=== PATIENT | female | born 2000 | race Caucasian/White ===

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

== ENCOUNTER 2018-04-05 08:20 | Emergency (ER) | payer MEDICAID ==
[~2018-04-05] VITALS: Ht 149.9 cm; Wt 64.5 kg
[2018-04-05 08:20] VITALS: BP 95/65; PULSE 98; TEMP 97.3
[~2018-04-05 08:20] MED LIST changes: +MACROBID 1100 MG/CAP PO
[2018-04-05] MEDS ORDERED: PREDNISONE20 MG PO (08:28)
[2018-04-05] MEDS ORDERED: BACTRIM DS 8001 TAB PO (08:28)
[2018-04-05] MEDS ORDERED: PHENYTEK200 MG PO (08:28)
== END 2018-04-05 10:33 | disposition home or self-care (01) ==
LOC: COL.ER 08:20
DX: L03.90 Cellulitis, unspecified (principal); S40.862A Insect bite (nonvenomous) of left upper arm, initial encounter; S40.861A Insect bite (nonvenomous) of right upper arm, initial encounter; S80.862A Insect bite (nonvenomous), left lower leg, initial encounter; S80.861A Insect bite (nonvenomous), right lower leg, initial encounter; Z87.891 Personal history of nicotine dependence; W57.XXXA Bitten or stung by nonvenomous insect and other nonvenomous arthropods, initial encounter
CPT/HCPCS: J1885

== ENCOUNTER 2018-04-14 19:32 | Emergency (ER) | payer MEDICAID ==
[~2018-04-14] VITALS: Ht 149.9 cm; Wt 58.2 kg
[~2018-04-14 19:32] MED LIST changes: +BACTRIM DS 8001 TAB PO; +PHENYTEK200 MG PO; +PREDNISONE20 MG PO
[2018-04-14 19:35] VITALS: BP 128/91; TEMP 97.8
[2018-04-14] MEDS ORDERED: DILANTIN 100MG100 MG (19:39)
[2018-04-14 19:57] LABS: BASO # 0.1 (0.0-0.2); BASO % 0.7 % (0.0-2.0); BILIRUBIN,TOTAL 0.7 mg/dL (0.0-1.0); CALCIUM 9.5 mg/dL (8.4-10.2); CREATININE, serum 0.62 mg/dL (0.52-1.25); EOS # 0.2 (0.0-0.7); EOS % 1.3 % (0-4.0); GRAN # 9.2 (1.4-6.5); GRAN % 69.5 % (42.2-75.2); HEMATOCRIT 40.2 % (35.0-45.0); HEMOGLOBIN 14.4 g/dl (12.0-15.0); LYMPH # 2.5 (1.2-3.4); LYMPH % 18.5 % (20.0-51.0); MEAN CELL VOLUME 94 fl (80.0-95.0); MEAN CORPUSCULAR HEMOGLOBIN 34 pg (26.0-32.0); MEAN CORPUSCULAR HGB CONC 36 g/dl (33.0-37.0); MEAN PLATELET VOLUME 10.6 fl (7.4-10.4); MONO # 1.3 (0.1-0.6); MONO % 9.8 % (1.7-9.3); PLATELET COUNT 216 K/mm3 (130-400); RED BLOOD COUNT 4.27 M/mm3 (4.10-5.30); REDCELL DISTRIBUTION WIDTH-CV 12.7 % (11.5-14.5); TOTAL PROTEIN 7.5 gm/dL (6.4-8.2)
[2018-04-14] MEDS ORDERED: MOBIC 7.5MG7.5 MG PO (20:24)
[2018-04-14 21:13] VITALS: PULSE 93
== END 2018-04-14 21:13 | disposition home or self-care (01) ==
LOC: COL.ER 19:32
PROVIDERS: Emergency Medicine
DX: F44.4 Conversion disorder with motor symptom or deficit (principal); R10.32 Left lower quadrant pain; F32.9 Major depressive disorder, single episode, unspecified; F41.9 Anxiety disorder, unspecified; F43.10 Post-traumatic stress disorder, unspecified; F90.9 Attention-deficit hyperactivity disorder, unspecified type; F17.210 Nicotine dependence, cigarettes, uncomplicated
CPT/HCPCS: J1885; J2405; J7030

== ENCOUNTER 2018-04-19 13:46 | Emergency (ER) | payer MEDICAID ==
[~2018-04-19] VITALS: Ht 149.9 cm; Wt 56.3 kg
[~2018-04-19 13:46] MED LIST changes: +DILANTIN 100MG100 MG; +MOBIC 7.5MG7.5 MG PO
[2018-04-19 13:47] VITALS: BP 107/70; TEMP 98.1
[2018-04-19] MEDS ORDERED: ELIMITE TOP (14:13)
[2018-04-19 14:29] VITALS: PULSE 93
== END 2018-04-19 14:30 | disposition home or self-care (01) ==
LOC: COL.ER 13:46
DX: B86 Scabies (principal); F17.210 Nicotine dependence, cigarettes, uncomplicated; F41.9 Anxiety disorder, unspecified; F32.9 Major depressive disorder, single episode, unspecified; F20.9 Schizophrenia, unspecified
CPT/HCPCS: J8540

== ENCOUNTER 2018-06-18 20:13 | Emergency (ER) | payer MEDICAID ==
[~2018-06-18] VITALS: Ht 149.9 cm; Wt 46.4 kg
[~2018-06-18 20:13] MED LIST changes: +ELIMITE TOP
[2018-06-18 20:51] VITALS: TEMP 97.8
[2018-06-18] MEDS ORDERED: OMNICEF 300MG300 MG PO (21:13)
[2018-06-18 21:40] VITALS: BP 127/84; PULSE 73
== END 2018-06-18 21:40 | disposition home or self-care (01) ==
LOC: COL.ER 20:13
DX: H66.91 Otitis media, unspecified, right ear (principal); F20.9 Schizophrenia, unspecified; F31.9 Bipolar disorder, unspecified; F41.9 Anxiety disorder, unspecified; F17.210 Nicotine dependence, cigarettes, uncomplicated; Z88.0 Allergy status to penicillin
CPT/HCPCS: J2405

== ENCOUNTER 2018-08-22 09:18 | Emergency (ER) | payer MEDICAID ==
[~2018-08-22] VITALS: Ht 149.9 cm; Wt 46.8 kg
[~2018-08-22 09:18] MED LIST changes: +OMNICEF 300MG300 MG PO
[2018-08-22 09:26] VITALS: BP 133/86
[2018-08-22] MEDS ORDERED: CIPRODEX OT (09:49)
[2018-08-22 09:58] VITALS: PULSE 100; TEMP 96.9
== END 2018-08-22 09:58 | disposition home or self-care (01) ==
LOC: COL.ER 09:18
DX: H60.91 Unspecified otitis externa, right ear (principal); J06.9 Acute upper respiratory infection, unspecified; F31.9 Bipolar disorder, unspecified; F43.10 Post-traumatic stress disorder, unspecified; F41.9 Anxiety disorder, unspecified; E11.9 Type 2 diabetes mellitus without complications; F20.9 Schizophrenia, unspecified; F17.210 Nicotine dependence, cigarettes, uncomplicated

== ENCOUNTER 2018-08-24 15:06 | Emergency (ER) | payer MEDICAID ==
[~2018-08-24] VITALS: Ht 149.9 cm; Wt 50.0 kg
[2018-08-24 15:06] VITALS: TEMP 97.8
[~2018-08-24 15:06] MED LIST changes: +CIPRODEX OT
[2018-08-24] MEDS ORDERED: OMNICEF 300MG300 MG PO (16:50)
[2018-08-24] MEDS ORDERED: FAMVIR 500500 MG/TAB PO (16:50)
[2018-08-24] MEDS ORDERED: PREDNISONE20 MG PO (16:50)
[2018-08-24 17:00] VITALS: BP 118/86
[2018-08-24 18:13] VITALS: PULSE 88
== END 2018-08-24 18:14 | disposition home or self-care (01) ==
LOC: COL.ER 15:06
DX: G51.0 Bell's palsy (principal); H60.91 Unspecified otitis externa, right ear; F17.210 Nicotine dependence, cigarettes, uncomplicated
CPT/HCPCS: J7512

== ENCOUNTER 2019-08-01 07:56 | Emergency (ER) | payer MEDICAID ==
[~2019-08-01] VITALS: Ht 149.9 cm; Wt 47.7 kg
[~2019-08-01 07:56] MED LIST changes: +FAMVIR 500500 MG/TAB PO
[2019-08-01 08:09] VITALS: TEMP 98.7
[2019-08-01] MEDS ORDERED: FLEXERIL 1010 MG/TAB PO (08:31)
[2019-08-01] MEDS ORDERED: CLEOCIN HCL300 MG PO (08:31)
[2019-08-01 08:50] VITALS: BP 119/78; PULSE 89
== END 2019-08-01 08:45 | disposition home or self-care (01) ==
LOC: COL.ER 07:56
DX: K08.89 Other specified disorders of teeth and supporting structures (principal); F41.9 Anxiety disorder, unspecified; F17.210 Nicotine dependence, cigarettes, uncomplicated; F43.10 Post-traumatic stress disorder, unspecified; F31.9 Bipolar disorder, unspecified; F20.9 Schizophrenia, unspecified; Z88.1 Allergy status to other antibiotic agents

== ENCOUNTER 2019-12-30 17:43 | Emergency (ER) | payer SELFPAY ==
[~2019-12-30] VITALS: Ht 162.6 cm; Wt 56.8 kg
[~2019-12-30 17:43] MED LIST changes: +CLEOCIN HCL300 MG PO
[2019-12-30 17:49] VITALS: TEMP 97.8
[2019-12-30 18:25] LABS: BILIRUBIN,TOTAL 0.2 mg/dL (0.0-1.0); C-REACTIVE PROTEIN 0.8 mg/dL (0.0-0.9); CALCIUM 8.9 mg/dL (8.4-10.2); CREATININE, serum 0.56 (0.52-1.25); TOTAL PROTEIN 7.1 gm/dL (6.4-8.2)
[2019-12-30 18:27] LABS: BASO # 0.1 (0.0-0.2); BASO % 0.5 % (0.0-2.0); EOS # 0.2 (0.0-0.7); EOS % 1.4 % (0-4.0); GRAN % 63.8 % (42.2-75.2); HEMATOCRIT 43.2 % (37.0-47.0); HEMOGLOBIN 14.2 g/dl (12.5-16.0); LYMPH # 3.4 (1.2-3.4); LYMPH % 26.9 % (20.0-51.0); MEAN CELL VOLUME 96 fl (80.0-100.0); MEAN CORPUSCULAR HEMOGLOBIN 32 pg (27.0-31.0); MEAN CORPUSCULAR HGB CONC 33 g/dl (33.0-37.0); MEAN PLATELET VOLUME 10.3 fl (7.4-10.4); MONO # 0.9 (0.1-0.6); MONO % 7.1 % (1.7-9.3); PLATELET COUNT 262 K/mm3 (130-400); RED BLOOD COUNT 4.48 M/mm3 (4.10-5.30)
[2019-12-30 19:18] LABS: ACETAMINOPHEN < 10 ug/mL (10-30); SALICYLATE < 1.0 mg/dL
[2019-12-30] MEDS ORDERED: OMNICEF 300MG300 MG PO (20:10)
[2019-12-30] MEDS ORDERED: NORCO 325 MG-51 TAB PO (20:10)
[2019-12-30 20:40] VITALS: BP 116/61; PULSE 109
[2019-12-30 21:01] LABS: COLLECTION METHOD CLEAN CATCH
[2019-12-30 21:10] LABS: MUCOUS Present /lpf; PH 6 (5-8); URINE APPEARANCE Clear; URINE BACTERIA Rare /hpf; URINE BILIRUBIN Negative (NEGATIVE); URINE BLOOD 1+ (NEGATIVE); URINE COLOR Yellow; URINE GLUCOSE Negative (NEGATIVE); URINE KETONE Negative (NEGATIVE); URINE LEUKOCYTE ESTERASE Negative (NEGATIVE); URINE NITRATE Positive (NEGATIVE); URINE PROTEIN(semi-quant) Negative (NEGATIVE); URINE RBC 0-2 /hpf; URINE UROBILINOGEN Negative (NEGATIVE)
[2019-12-30 21:41] LABS: TRICYCLIC ANTIDEPRESS URINE NEGATIVE
== END 2019-12-30 20:55 | disposition home or self-care (01) ==
LOC: COL.ER 17:43
PROVIDERS: Emergency Medicine
DX: J32.9 Chronic sinusitis, unspecified (principal); H66.91 Otitis media, unspecified, right ear; H60.92 Unspecified otitis externa, left ear; F10.129 Alcohol abuse with intoxication, unspecified; F17.210 Nicotine dependence, cigarettes, uncomplicated; Y90.5 Blood alcohol level of 100-119 mg/100 ml
CPT/HCPCS: J1885; J2405; J3010; J7030

== ENCOUNTER 2021-06-19 15:54 | Emergency (ER) | payer SELFPAY ==
[~2021-06-19 15:54] MED LIST changes: +NORCO 325 MG-51 TAB PO
== END 2021-06-19 16:51 | disposition left against medical advice (07) ==
LOC: COL.ER 15:54
DX: F10.939 Alcohol use, unspecified with withdrawal, unspecified (principal)

== ENCOUNTER 2021-07-15 17:04 | Emergency (ER) | payer SELFPAY ==
[~2021-07-15] VITALS: Ht 149.9 cm; Wt 54.5 kg
[2021-07-15 17:30] VITALS: TEMP 99
[2021-07-15] MEDS ORDERED: CLEOCIN HCL300 MG PO ×2 (18:59)
[2021-07-15] MEDS ORDERED: NORCO 325 MG-51 TAB PO (18:59)
[2021-07-15] MEDS ORDERED: FLAGYL500 MG PO (19:50)
[2021-07-15] MEDS ORDERED: CEPHALEXIN500 M1 PO (19:50)
[2021-07-15 20:27] VITALS: BP 148/86; PULSE 94
== END 2021-07-15 20:27 | disposition home or self-care (01) ==
LOC: COL.ER 17:04
DX: K11.20 Sialoadenitis, unspecified (principal); F17.290 Nicotine dependence, other tobacco product, uncomplicated

== ENCOUNTER 2022-01-01 16:32 | Emergency (ER) | payer SELFPAY ==
[~2022-01-01] VITALS: Ht 157.5 cm; Wt 59.1 kg
[~2022-01-01 16:32] MED LIST changes: +CEPHALEXIN500 M1 PO; +FLAGYL500 MG PO
[2022-01-01 18:26] LABS: BASO # 0.1 K/mm3 (0.0-0.2); BASO % 0.7 % (0.0-2.0); EOS # 0.2 K/mm3 (0.0-0.7); EOS % 2.5 % (0.0-4.0); GRAN # 4.2 K/mm3 (1.4-6.5); GRAN % 50.1 % (42.2-75.2); HEMATOCRIT 39.2 % (37.0-47.0); HEMOGLOBIN 13.3 g/dl (12.5-16.0); LYMPH # 3.1 K/mm3 (1.2-3.4); LYMPH % 37.5 % (20.0-51.0); MEAN CELL VOLUME 96 fl (80.0-100.0); MEAN CORPUSCULAR HEMOGLOBIN 32 pg (27-31); MEAN CORPUSCULAR HGB CONC 34 g/dl (33.0-37.0); MEAN PLATELET VOLUME 10.3 fl (7.4-10.4); MONO # 0.8 K/mm3 (0.1-0.6); PLATELET COUNT 257 K/mm3 (130-400); REDCELL DISTRIBUTION WIDTH-CV 13.2 % (11.5-14.5)
[2022-01-01 18:41] LABS: ALANINE AMINOTRANSFERASE 74 U/L (0-55); ALBUMIN 3.4 gm/dL (3.5-5.0); ALCOHOL(ethanol),MEDICAL 89 mg/dL (0-10); ALKALINE PHOSPHATASE 87 U/L (40-150); ANION GAP 10 mmol/L (7-16); AST,SGOT 46 U/L (5-34); BILIRUBIN,TOTAL 0.2 mg/dL (0.2-1.2); BLOOD UREA NITROGEN 14 mg/dL (7-19); CALCIUM 8.9 mg/dL (8.4-10.2); CARBON DIOXIDE 20 mmol/L (22-29); CHLORIDE 110 mmol/L (98-107); CREATININE, serum 0.73 mg/dL (0.57-1.11); GLUCOSE 96 mg/dL (70-99); POTASSIUM 3.9 mmol/L (3.5-4.5); SODIUM 140 mmol/L (136-145); TOTAL PROTEIN 6.6 gm/dL (6.2-8.1)
[2022-01-01 18:43] LABS: ACETAMINOPHEN < 1.0 ug/mL (10-30); SALICYLATE < 5.0 mg/dL (15.0-30.0)
[2022-01-01 19:01] LABS: TSH w REFLEX 2.392 uIU/mL (0.350-4.940)
[2022-01-02 00:40] VITALS: TEMP 97.9
[2022-01-02 13:12] LABS: COLLECTION METHOD CLEAN CATCH
[2022-01-02 13:30] LABS: MUCOUS Present (NOT PRESENT); PH 7 (5-8); SQUAMOUS EPITHELIAL 0-2 /hpf (0-10); URINE APPEARANCE Cloudy (CLEAR/HAZY); URINE BACTERIA Occasional /hpf (NONE SEEN); URINE BILIRUBIN Negative (NEGATIVE); URINE BLOOD 2+ (NEGATIVE); URINE COLOR Yellow (YELLOW); URINE GLUCOSE Negative (NEGATIVE); URINE KETONE Negative (NEGATIVE); URINE LEUKOCYTE ESTERASE Negative (NEGATIVE); URINE NITRATE Negative (NEGATIVE); URINE PROTEIN(semi-quant) Negative (NEGATIVE); URINE RBC 0-2 /hpf (0-2); URINE UROBILINOGEN >=4.0 (NEGATIVE)
[2022-01-02 13:46] LABS: TRICYCLIC ANTIDEPRESS URINE NEGATIVE
[2022-01-03 00:45] VITALS: BP 128/90; PULSE 81
== END 2022-01-03 00:45 | disposition home or self-care (01) ==
LOC: COL.ER 16:32
PROVIDERS: Emergency Medicine; Personal Emergency Response Attendant
DX: R41.82 Altered mental status, unspecified (principal)
CPT/HCPCS: J1630; J2060

== ENCOUNTER 2022-01-15 18:41 | Emergency (ER) | payer SELFPAY ==
[~2022-01-15] VITALS: Ht 149.9 cm; Wt 66.8 kg
[2022-01-15 18:46] VITALS: TEMP 97.4
[2022-01-15 21:38] LABS: BASO # 0.1 K/mm3 (0.0-0.2); BASO % 0.9 % (0.0-2.0); EOS # 0.2 K/mm3 (0.0-0.7); EOS % 2.1 % (0.0-4.0); GRAN # 4.7 K/mm3 (1.4-6.5); GRAN % 51.2 % (42.2-75.2); HEMATOCRIT 42.8 % (37.0-47.0); HEMOGLOBIN 14.9 g/dl (12.5-16.0); LYMPH # 3.6 K/mm3 (1.2-3.4); LYMPH % 39.4 % (20.0-51.0); MEAN CELL VOLUME 93 fl (80.0-100.0); MEAN CORPUSCULAR HEMOGLOBIN 32 pg (27-31); MEAN CORPUSCULAR HGB CONC 35 g/dl (33.0-37.0); MEAN PLATELET VOLUME 10.1 fl (7.4-10.4); MONO # 0.6 K/mm3 (0.1-0.6); MONO % 6.1 % (1.7-9.3); PLATELET COUNT 300 K/mm3 (130-400); REDCELL DISTRIBUTION WIDTH-CV 13.3 % (11.5-14.5)
[2022-01-15 21:55] LABS: ALBUMIN 3.7 gm/dL (3.5-5.0); BILIRUBIN,TOTAL 0.1 mg/dL (0.2-1.2); CALCIUM 8.6 mg/dL (8.4-10.2); CREATININE, serum 0.57 mg/dL (0.57-1.11); POTASSIUM 4.3 mmol/L (3.5-4.5)
[2022-01-16 02:54] LABS: COLLECTION METHOD CLEAN CATCH
[2022-01-16 03:06] LABS: MUCOUS Present (NOT PRESENT); PH 5 (5-8); TRICYCLIC ANTIDEPRESS URINE NEGATIVE; URINE APPEARANCE Hazy (CLEAR/HAZY); URINE BACTERIA Rare /hpf (NONE SEEN); URINE BILIRUBIN Negative (NEGATIVE); URINE BLOOD Negative (NEGATIVE); URINE COLOR Yellow (YELLOW); URINE GLUCOSE Negative (NEGATIVE); URINE KETONE Negative (NEGATIVE); URINE LEUKOCYTE ESTERASE Negative (NEGATIVE); URINE NITRATE Positive (NEGATIVE); URINE PROTEIN(semi-quant) Negative (NEGATIVE); URINE RBC 0-2 /hpf (0-2); URINE UROBILINOGEN Negative (NEGATIVE)
[2022-01-16 08:32] VITALS: BP 124/61; PULSE 80
== END 2022-01-16 08:33 | disposition home or self-care (01) ==
LOC: COL.ER 18:41
PROVIDERS: Student in an Organized Health Care Education/Training Program
DX: F19.10 Other psychoactive substance abuse, uncomplicated (principal); F17.210 Nicotine dependence, cigarettes, uncomplicated

== ENCOUNTER 2022-01-26 23:01 | Emergency (ER) | payer SELFPAY ==
[~2022-01-26] VITALS: Ht 152.4 cm; Wt 68.2 kg
[2022-01-26 23:51] LABS: BASO # 0.1 K/mm3 (0.0-0.2); BASO % 0.8 % (0.0-2.0); EOS # 0.2 K/mm3 (0.0-0.7); EOS % 2.1 % (0.0-4.0); GRAN # 3.5 K/mm3 (1.4-6.5); GRAN % 49.3 % (42.2-75.2); HEMATOCRIT 38.2 % (37.0-47.0); HEMOGLOBIN 13.1 g/dl (12.5-16.0); LYMPH # 2.9 K/mm3 (1.2-3.4); LYMPH % 40.7 % (20.0-51.0); MEAN CELL VOLUME 94 fl (80.0-100.0); MEAN CORPUSCULAR HEMOGLOBIN 32 pg (27-31); MEAN CORPUSCULAR HGB CONC 34 g/dl (33.0-37.0); MEAN PLATELET VOLUME 10.4 fl (7.4-10.4); MONO # 0.5 K/mm3 (0.1-0.6); PLATELET COUNT 278 K/mm3 (130-400); RED BLOOD COUNT 4.08 M/mm3 (4.10-5.30)
[2022-01-27 00:08] LABS: ALBUMIN 3.6 gm/dL (3.5-5.0); BILIRUBIN,TOTAL 0.2 mg/dL (0.2-1.2); CALCIUM 8.5 mg/dL (8.4-10.2); CREATININE, serum 0.64 mg/dL (0.57-1.11); POTASSIUM 3.8 mmol/L (3.5-4.5); TOTAL PROTEIN 6.6 gm/dL (6.2-8.1)
[2022-01-27 03:22] VITALS: BP 132/81; PULSE 94
== END 2022-01-27 03:28 | disposition home or self-care (01) ==
LOC: COL.ER 23:01
PROVIDERS: Nurse Practitioner
DX: R47.02 Dysphasia (principal); R51.9 Headache, unspecified; F17.200 Nicotine dependence, unspecified, uncomplicated
CPT/HCPCS: J1885

== ENCOUNTER 2024-07-10 09:18 | Emergency (ER) | payer SELFPAY ==
[~2024-07-10] VITALS: Ht 149.9 cm; Wt 46.7 kg
[2024-07-10 09:36] VITALS: BP 117/81; TEMP 97.9
[2024-07-10] MEDS ORDERED: Cephalexin 500 MG CAP PO ONE (10:00)
[2024-07-10] MEDS ORDERED: Sulfamethoxazole/Trimethoprim 800-160 MG TAB PO ONE (10:00)
[2024-07-10] MEDS ORDERED: CEPHALEXIN500 M1 PO (10:04)
[2024-07-10] MEDS ORDERED: NORCO 325 MG-51 TAB PO (10:04)
[2024-07-10] MEDS ORDERED: BACTRIM DS 8001 TAB PO (10:04)
[2024-07-10 10:57] VITALS: PULSE 87
== END 2024-07-10 10:57 | disposition home or self-care (01) ==
LOC: COL.ER 09:18
DX: L03.114 Cellulitis of left upper limb (principal); L03.113 Cellulitis of right upper limb; L03.116 Cellulitis of left lower limb; L03.115 Cellulitis of right lower limb